=== PATIENT | female | born 1970 | race Asian ===

== ENCOUNTER 2022-05-11 09:04 | Day surgery (SDC) | payer OTHER ==
[~2022-05-11] VITALS: Ht 165.1 cm; Wt 54.4 kg
[2022-05-11] MEDS ORDERED: diphenhydrAMINE 50 MG/ML VIAL ONE (09:07)
[2022-05-11] MEDS ORDERED: fentaNYL citrate 0.05 MG/ML VIAL ONE (09:07)
[2022-05-11] MEDS ORDERED: LIDOCAINE 2% 100 MG/5 ML UJET TP ONE (09:08)
[2022-05-11] MEDS ORDERED: MIDAZOLAM 5 MG/5 ML VIAL ONE (09:08)
[2022-05-11] MEDS ORDERED: fentaNYL citrate 0.05 MG/ML VIAL IVP ONE (13:00)
[2022-05-11] MEDS ORDERED: MIDAZOLAM 5 MG/5 ML VIAL IV ONE (13:00)
== END 2022-05-11 12:22 | disposition home or self-care (01) ==
LOC: MOR 09:04 → MMU 09:04 → MOR 12:22
PROVIDERS: ATTEND Internal Medicine Gastroenterology
DX: Z12.11 Encounter for screening for malignant neoplasm of colon (principal); K64.8 Other hemorrhoids; Z20.822 Contact with and (suspected) exposure to COVID-19
CPT/HCPCS: 45378; 81025; 87426; J2250; J3010; J1200